=== PATIENT | male | born 1980 | race Caucasian/White ===

== ENCOUNTER 2018-08-20 07:24 | Emergency (ER) | payer OTHER ==
[~2018-08-20] VITALS: Ht 208.3 cm; Wt 133.8 kg
[2018-08-20 07:30] VITALS: BP 127/85
--- NOTE | 2018-08-20 07:30 | NUR ---
PT AMBULATED TO BED 2 AT THIS TIME.
--- NOTE | 2018-08-20 07:32 | NUR ---
TO BED 2 WITH STEADY GAIT. TRIAGE NURSE AT BEDSIDE.
--- NOTE | 2018-08-20 07:37 | NUR ---
BIB SELF C/O ABSCESS, REDNESS, SWELLING TO R DELTOID X 3 DAYS WITH SEROSANGUINOUS DRAINAGE. PT A&OX4, BREATHING EVEN AND UNLABORED. PAIN 09/27. AWAITING ER MD EVALUATION.
[2018-08-20] MEDS ORDERED: LIDOCAINE 1% 500 MG/50 ML VIAL INJ SCH (07:50)
--- NOTE | 2018-08-20 07:59 | NUR ---
PT BACK FROM RADIOLOGY.
[2018-08-20] MEDS ORDERED: LIDOCAINE MPF 1% 5mL VIAL ONE (08:04)
--- NOTE | 2018-08-20 08:07 | NUR ---
CONSENT FOR IMMUNIZATION SIGNED. I&D SET UP READY AT BEDSIDE.
[2018-08-20 09:01] VITALS: BP 138/79
--- NOTE | 2018-08-20 09:02 | NUR ---
Patient discharged with v/s stable. Written and verbal after care instructions given and explained. Patient alert, oriented and verbalized understanding of instructions. Ambulatory with steady gait. All questions addressed prior to discharge. ID band removed. Patient advised to follow up with PMD. Rx of CEPHALEXIN AND ALBUTEROL given. Patient educated on indication of medication including possible reaction and side effects. Opportunity to ask questions provided and answered.
== END 2018-08-20 09:02 | disposition home or self-care (01) ==
LOC: MED 07:24
DX: L02.413 Cutaneous abscess of right upper limb (principal); L03.113 Cellulitis of right upper limb; J45.909 Unspecified asthma, uncomplicated; F17.200 Nicotine dependence, unspecified, uncomplicated; R03.0 Elevated blood-pressure reading, without diagnosis of hypertension
CPT/HCPCS: 10060; 71046; 90471; 90715; 99283; J2001